=== PATIENT | male | born 2000 | race Caucasian/White ===

== ENCOUNTER 2019-09-13 21:28 | Emergency (ER) | payer OTHER ==
--- NOTE | 2019-09-13 22:12 | EDPHYS ---
Physician Documentation [facility] Name: José Luis Spain II Age: 19 yrs Sex: Male : 2000 Arrival Date: 09/13/2019 Time: 21:47 Bed 15 Private MD: ED Physician Higinio Jones HPI: 09/13 22:31 This 19 yrs old Male presents to ER via Ambulatory with complaints of Cyst. snw 22:31 The patient presents with pain that is acute, with no known mechanism of injury. The snw symptoms are located in the coccyx area. The pain does not radiate. The problem was sustained from unknown cause. Onset: The symptoms/episode began/occurred suddenly, 2 day(s) ago, and became persistent. Associated signs and symptoms: The patient has no apparent associated signs or symptoms, Pertinent negatives: fever. Severity of symptoms: At their worst the symptoms were moderate. The patient has not experienced similar symptoms in the past, but family has similar symptoms. The patient has not recently seen a physician. Historical: - Allergies: 21:49 No Known Allergies; lp1 - Home Meds: 21:49 None [Active]; lp1 - PMHx: 21:49 None; lp1 - PSHx: 21:49 Hand surgery; lp1 - Immunization history:: Adult Immunizations up to date. - Social history:: Smoking status: Patient uses tobacco products, smokes one-half pack cigarettes per day. - Ebola Screening: : No symptoms or risks identified at this time. ROS: 22:29 Constitutional: Negative for fever, chills, and weight loss, Eyes: Negative for injury, snw pain, redness, and discharge, ENT: Negative for injury, pain, and discharge, Neck: Negative for injury, pain, and swelling, Cardiovascular: Negative for chest pain, palpitations, and edema, Respiratory: Negative for shortness of breath, cough, wheezing, and pleuritic chest pain, Abdomen/GI: Negative for abdominal pain, nausea, vomiting, diarrhea, and constipation, Back: Negative for injury and pain, : Negative for injury, bleeding, discharge, and swelling, MS/Extremity: Negative for injury and deformity, Skin: Negative for injury, rash, and discoloration, except redness and tenderness to top of buttock cleft Neuro: Negative for headache, weakness, numbness, tingling, and seizure. Exam: 22:28 Constitutional: This is a well developed, well nourished patient who is awake, alert, snw and in no acute distress. Head/Face: Normocephalic, atraumatic. Eyes: Pupils equal round and reactive to light, extra-ocular motions intact. Lids and lashes normal. Conjunctiva and sclera are non-icteric and not injected. Cornea within normal limits. Periorbital areas with no swelling, redness, or edema. ENT: Nares patent. No nasal discharge, no septal abnormalities noted. Tympanic membranes are normal and external auditory canals are clear. Oropharynx with no redness, swelling, or masses, exudates, or evidence of obstruction, uvula midline. Mucous membranes moist. Neck: Trachea midline, no thyromegaly or masses palpated, and no cervical lymphadenopathy. Supple, full range of motion without nuchal rigidity, or vertebral point tenderness. No Meningismus. Chest/axilla: Normal chest wall appearance and motion. Nontender with no deformity. No lesions are appreciated. Cardiovascular: Regular rate and rhythm with a normal S1 and S2. No gallops, murmurs, or rubs. Normal PMI, no JVD. No pulse deficits. Respiratory: Lungs have equal breath sounds bilaterally, clear to auscultation and percussion. No rales, rhonchi or wheezes noted. No increased work of breathing, no retractions or nasal flaring. Abdomen/GI: Soft, non-tender, with normal bowel sounds. No distension or tympany. No guarding or rebound. No evidence of tenderness throughout. Skin: Warm, dry with normal turgor. Normal color with no rashes, no lesions, and no evidence of cellulitis. MS/ Extremity: Pulses equal, no cyanosis. Neurovascular intact. Full, normal range of motion. Neuro: Awake and alert, GCS 15, oriented to person, place, time, and situation. Cranial nerves II-XII grossly intact. Motor strength 5/5 in all extremities. Sensory grossly intact. Cerebellar exam normal. Normal gait. Psych: Awake, alert, with orientation to person, place and time. Behavior, mood, and affect are within normal limits. 22:28 Back: pain, that is moderate, ROM is normal, normal spinal alignment noted, CVA tenderness, is absent, muscle spasm, is not present, pilonidal area with erythema, no fluctuant area, tender to palpation. Vital Signs: 21:47 BP 120 / 78; Pulse 100; Resp 20; Temp 98.6(O); Pulse Ox 98% on R/A; Weight 136.08 kg; lp1 Height 6 ft. 3 in. (190.50 cm); Pain 4/10; 21:47 Body Mass Index 37.50 (136.08 kg, 190.50 cm) lp1 MDM: 22:10 Patient medically screened. snw 22:30 Data reviewed: vital signs, nurses notes. Data interpreted: Pulse oximetry: on room air snw is 98 %. Interpretation: normal. Counseling: I had a detailed discussion with the patient and/or guardian regarding: the historical points, exam findings, and any diagnostic results supporting the discharge/admit diagnosis, the need for outpatient follow up, to return to the emergency department if symptoms worsen or persist or if there are any questions or concerns that arise at home. Special discussion: Based on the history and exam findings, there is no indication for further emergent testing or inpatient evaluation. I discussed with the patient/guardian the need to see the primary care provider for further evaluation of the symptoms. Administered Medications: 22:31 Drug: Clindamycin 300 mg Route: PO; ea 22:38 Follow up: Response: Medication administered at discharge. ea 22:31 Drug: UltRAM 50 mg Route: PO; ea 22:38 Follow up: Response: No adverse reaction; Medication administered at discharge. ea Disposition: 09/14 00:46 Co-signature as Attending Physician, Higinio Jones MD. rn Disposition: 09/13/19 22:11 Discharged to Home. Impression: Pilonidal cyst without abscess. - Condition is Stable. - Discharge Instructions: Pilonidal Cyst, How to Take a Sitz Bath, Heat Therapy. - Prescriptions for Clindamycin HCl 300 mg Oral Capsule - take 1 capsule by ORAL route every 6 hours for 10 days; 40 capsule. - Work release form, Medication Reconciliation Form, Thank You Letter, Antibiotic Education, Prescription Opioid Use form. - Follow up: Private Physician; When: 2 - 3 days; Reason: Recheck today's complaints, Continuance of care, Re-evaluation by your physician. Follow up: Emergency Department; When: As needed; Reason: Worsening of condition. Signatures: Krystin Del Castillo, REGULATORY AFFAIRS COORDINATOR-C REGULATORY AFFAIRS COORDINATOR-Csnw Higinio Jones MD MD rn Pena, Laura RN RN lp1 Cely Wesley RN RN ea Corrections: (The following items were deleted from the chart) 09/13 22:38 22:11 09/13/2019 22:11 Discharged to Home. Impression: Pilonidal cyst without abscess. ea Condition is Stable. Forms are Medication Reconciliation Form, Thank You Letter, Antibiotic Education, Prescription Opioid Use. Follow up: Private Physician; When: 2 - 3 days; Reason: Recheck today's complaints, Continuance of care, Re-evaluation by your physician. Follow up: Emergency Department; When: As needed; Reason: Worsening of condition. snw
--- NOTE | 2019-09-13 22:12 | ER ---
Nurse's Notes [facility] Name: José Luis Spain II Age: 19 yrs Sex: Male : 2000 Arrival Date: 09/13/2019 Time: 21:47 Bed 15 Private MD: Diagnosis: Pilonidal cyst without abscess Presentation: 09/13 21:48 Presenting complaint: Patient states: Abscess to tail bone x 3 days, pain getting lp1 worse. Transition of care: patient was not received from another setting of care. Onset of symptoms was September 13, 2019. Risk Assessment: Do you want to hurt yourself or someone else? Patient reports no desire to harm self or others. Initial Sepsis Screen: Does the patient meet any 2 criteria? No. Patient's initial sepsis screen is negative. Does the patient have a suspected source of infection? No. Patient's initial sepsis screen is negative. Care prior to arrival: None. 21:48 Method Of Arrival: Ambulatory lp1 21:48 Acuity: YULISSA 4 lp1 Historical: - Allergies: 21:49 No Known Allergies; lp1 - Home Meds: 21:49 None [Active]; lp1 - PMHx: 21:49 None; lp1 - PSHx: 21:49 Hand surgery; lp1 - Immunization history:: Adult Immunizations up to date. - Social history:: Smoking status: Patient uses tobacco products, smokes one-half pack cigarettes per day. - Ebola Screening: : No symptoms or risks identified at this time. Screenin:15 Abuse screen: Denies threats or abuse. Nutritional screening: No deficits noted. ea Tuberculosis screening: No symptoms or risk factors identified. Fall Risk None identified. Assessment: 22:15 General: Appears uncomfortable, Behavior is calm, cooperative, appropriate for age. ea Neuro: Level of Consciousness is awake, alert, obeys commands, Oriented to person, place, time, situation. Cardiovascular: Patient's skin is warm and dry. Respiratory: Airway is patent Respiratory effort is even, unlabored, Respiratory pattern is regular, symmetrical. 22:38 Reassessment: Patient and/or family updated on plan of care and expected duration. Pain ea level reassessed. Patient is alert, oriented x 3, equal unlabored respirations, skin warm/dry/pink. Discharge instruction given to patient, verbalized the understanding of instruction. Pt left ED ambulatory accompanied by family. Vital Signs: 21:47 BP 120 / 78; Pulse 100; Resp 20; Temp 98.6(O); Pulse Ox 98% on R/A; Weight 136.08 kg; lp1 Height 6 ft. 3 in. (190.50 cm); Pain 4/10; 21:47 Body Mass Index 37.50 (136.08 kg, 190.50 cm) lp1 ED Course: 21:47 Patient arrived in ED. cl3 21:48 Triage completed. lp1 21:48 Arm band placed on left wrist. lp1 22:00 Krystin Del Castillo FNP-C is PHCP. snw 22:00 Higinio Jones MD is Attending Physician. snw 22:15 Patient has correct armband on for positive identification. Bed in low position. Call ea light in reach. 22:23 Cely Wesley, RN is Primary Nurse. ea 22:36 No provider procedures requiring assistance completed. Patient did not have IV access ea during this emergency room visit. Administered Medications: 22:31 Drug: Clindamycin 300 mg Route: PO; ea 22:38 Follow up: Response: Medication administered at discharge. ea 22:31 Drug: UltRAM 50 mg Route: PO; ea 22:38 Follow up: Response: No adverse reaction; Medication administered at discharge. ea Outcome: 22:11 Discharge ordered by . snw 22:37 Discharged to home ambulatory, with family. ea 22:37 Condition: stable 22:37 Discharge instructions given to patient, Instructed on discharge instructions, follow up and referral plans. medication usage, Demonstrated understanding of instructions, follow-up care, medications, Prescriptions given X 1. 22:38 Patient left the ED. ea Signatures: Krystin Del Castillo FNP-C [employer] GROUND OPERATIONS SUPERVISOR-Csnw Shyanne Wei RN RN lp1 Cely Wesley, Jermaine Milan RN, ea cl3
[2019-09-13] MEDS ORDERED: TRAMADOL HCL 50 MG TAB ONE (22:25)
[2019-09-13] MEDS ORDERED: CLINDAMYCIN HCL 150 MG CAP ONE (22:25)
[2019-09-14 01:38] VITALS: BP 120/78; TEMP 98.6; O2SAT 98
== END 2019-09-13 22:38 | disposition home or self-care (01) ==
LOC: ER 21:28
DX: L05.91 Pilonidal cyst without abscess (principal); F17.210 Nicotine dependence, cigarettes, uncomplicated
CPT/HCPCS: 99283

== ENCOUNTER 2019-09-19 20:59 | Emergency (ER) | payer OTHER ==
--- NOTE | 2019-09-19 21:43 | EDPHYS ---
Physician Documentation [facility] Name: José Luis Spain II Age: 19 yrs Sex: Male : 2000 Arrival Date: 09/19/2019 Time: 21:02 Bed 17 Private MD: ED Physician Justin Fitzpatrick HPI: 09/19 21:41 This 19 yrs old Male presents to ER via Ambulatory with complaints of Cyst. pm1 21:41 Pilonidal cyst. Description: draining. Onset: The symptoms/episode began/occurred 8 pm1 day(s) ago. Associated signs and symptoms: Pertinent negatives: fever. Modifying factors: the symptoms are alleviated by warm soaks, the symptoms are aggravated by sitting, touching. Severity of symptoms: in the emergency department the symptoms are actually worse, Patient reports that it started draining today. Has pain but did not get any pain medications 6 days ago. Would like prescription for pain medications and work note. The patient has been recently seen at the [facility] Emergency Department, last week, for similar complaints was given a prescription for antibiotics. Historical: - Allergies: 21:28 No Known Allergies; tl1 - PMHx: 21:28 None; tl1 - PSHx: 21:28 hand surgery; tl1 - Immunization history:: Adult Immunizations unknown. - Social history:: Smoking status: Patient uses tobacco products, smokes one-half pack cigarettes per day, Patient uses alcohol, occasionally. Patient/guardian denies using street drugs. - Ebola Screening: : Patient negative for fever greater than or equal to 101.5 degrees Fahrenheit, and additional compatible Ebola Virus Disease symptoms Patient denies exposure to infectious person Patient denies travel to an Ebola-affected area in the 21 days before illness onset. ROS: 21:41 Constitutional: Negative for fever, chills, and weight loss, Cardiovascular: Negative pm1 for chest pain, palpitations, and edema, Respiratory: Negative for shortness of breath, cough, wheezing, and pleuritic chest pain, Abdomen/GI: Negative for abdominal pain, nausea, vomiting, diarrhea, and constipation, Back: Negative for injury and pain. 21:41 Neuro: Negative for headache, weakness, numbness, tingling, and seizure. 21:41 Skin: Positive for of the coccyx, pilonidal cyst. Exam: 21:41 Constitutional: This is a well developed, well nourished patient who is awake, alert, pm1 and in no acute distress. Head/Face: Normocephalic, atraumatic. Chest/axilla: Normal chest wall appearance and motion. Nontender with no deformity. No lesions are appreciated. Cardiovascular: Regular rate and rhythm with a normal S1 and S2. No gallops, murmurs, or rubs. Normal PMI, no JVD. No pulse deficits. Respiratory: Lungs have equal breath sounds bilaterally, clear to auscultation and percussion. No rales, rhonchi or wheezes noted. No increased work of breathing, no retractions or nasal flaring. Back: No spinal tenderness. No costovertebral tenderness. Full range of motion. 21:41 MS/ Extremity: Pulses equal, no cyanosis. Neurovascular intact. Full, normal range of motion. 21:41 Skin: Appearance: normal except for affected area, pilonidal cyst with drainage. No surrounding cellulitis. 21:41 Neuro: Orientation: is normal, Motor: is normal, moves all fours. Vital Signs: 21:26 BP 136 / 98; Pulse 107; Resp 17; Temp 98.6; Pulse Ox 98% on R/A; Weight 136.08 kg; tl1 Height 6 ft. 4 in. (193.04 cm); Pain 8/10; 21:26 Body Mass Index 36.52 (136.08 kg, 193.04 cm) tl1 MDM: 21:35 Patient medically screened. pm1 21:41 Data reviewed: vital signs. Data interpreted: Pulse oximetry: on room air is 98 %. pm1 Interpretation: normal. Counseling: I had a detailed discussion with the patient and/or guardian regarding: the historical points, exam findings, and any diagnostic results supporting the discharge/admit diagnosis, the need for outpatient follow up, for definitive care, a general surgeon, to return to the emergency department if symptoms worsen or persist or if there are any questions or concerns that arise at home. Administered Medications: 21:51 Drug: Acosta 10 mg-325 mg 1 tabs Route: PO; 22:09 Follow up: Response: No adverse reaction; Pain is decreased; RASS: Alert and Calm (0) Disposition: 09/19/19 21:42 Discharged to Home. Impression: Pilonidal sinus without abscess. - Condition is Stable. - Discharge Instructions: Pilonidal Cyst. - Prescriptions for Tylenol- Codeine #3 300-30 mg Oral Tablet - take 2 tablets by ORAL route every 6 hours As needed; 20 tablet. - Work release form, Medication Reconciliation Form, Thank You Letter, Antibiotic Education, Prescription Opioid Use form. - Follow up: Emergency Department; When: As needed; Reason: Worsening of condition. Follow up: Kamaljit Torres MD; When: 2 - 3 days; Reason: Recheck today's complaints, Continuance of care, Re-evaluation by your physician. - Problem is new. - Symptoms have improved. - Notes: continue taking the antibiotics that you were prescribed Signatures: Mery Ferrara RN RN tl1 Remi Finney NP PACKAGE [employer]TER pm1 Chaparrita Villegas Corrections: (The following items were deleted from the chart) 22:09 21:42 09/19/2019 21:42 Discharged to Home. Impression: Pilonidal sinus without abscess. wh Condition is Stable. Forms are Medication Reconciliation Form, Thank You Letter, Antibiotic Education, Prescription Opioid Use. Follow up: Emergency Department; When: As needed; Reason: Worsening of condition. Follow up: Kamaljit Torres; When: 2 - 3 days; Reason: Recheck today's complaints, Continuance of care, Re-evaluation by your physician. Problem is new. Symptoms have improved. pm1
--- NOTE | 2019-09-19 21:43 | ER ---
Nurse's Notes [facility] Name: José Luis Spain II Age: 19 yrs Sex: Male : 2000 Arrival Date: 09/19/2019 Time: 21:02 Bed 17 Private MD: Diagnosis: Pilonidal sinus without abscess Presentation: 09/19 21:25 Presenting complaint: Patient states: I was seen here Thursday and diagnosed with tl1 pilonidal cyst and was prescribed antibiotics but nothing for pain. It started draining today but it is still uncomfortable. Transition of care: patient was not received from another setting of care. Onset of symptoms was September 09, 2019. Risk Assessment: Do you want to hurt yourself or someone else? Patient reports no desire to harm self or others. Initial Sepsis Screen: Does the patient meet any 2 criteria? No. Patient's initial sepsis screen is negative. Does the patient have a suspected source of infection? No. Patient's initial sepsis screen is negative. Care prior to arrival: Medication(s) given: antibiotics. 21:25 Method Of Arrival: Ambulatory tl1 21:25 Acuity: YULISSA 4 tl1 Historical: - Allergies: 21:28 No Known Allergies; tl1 - PMHx: 21:28 None; tl1 - PSHx: 21:28 hand surgery; tl1 - Immunization history:: Adult Immunizations unknown. - Social history:: Smoking status: Patient uses tobacco products, smokes one-half pack cigarettes per day, Patient uses alcohol, occasionally. Patient/guardian denies using street drugs. - Ebola Screening: : Patient negative for fever greater than or equal to 101.5 degrees Fahrenheit, and additional compatible Ebola Virus Disease symptoms Patient denies exposure to infectious person Patient denies travel to an Ebola-affected area in the 21 days before illness onset. Screenin:30 Abuse screen: Denies threats or abuse. Denies injuries from another. Nutritional wh screening: No deficits noted. Tuberculosis screening: No symptoms or risk factors identified. Fall Risk None identified. Assessment: 21:35 General: Appears in no apparent distress. Behavior is calm, cooperative, appropriate wh for age. Pain: Complains of pain in coccyx Pain does not radiate. Pain currently is 8 out of 10 on a pain scale. Quality of pain is described as aching, Pain began 2-3 days ago. Neuro: Level of Consciousness is awake, alert, obeys commands, Oriented to person, place, time, situation, Appropriate for age. Cardiovascular: Capillary refill < 3 seconds. Respiratory: Airway is patent Respiratory effort is even, unlabored, Respiratory pattern is regular, symmetrical. GI: Abdomen is flat, non-distended. : No signs and/or symptoms were reported regarding the genitourinary system. EENT: No signs and/or symptoms were reported regarding the EENT system. Derm: Pilonidal Cyst. Musculoskeletal: Circulation, motion, and sensation intact. Vital Signs: 21:26 BP 136 / 98; Pulse 107; Resp 17; Temp 98.6; Pulse Ox 98% on R/A; Weight 136.08 kg; tl1 Height 6 ft. 4 in. (193.04 cm); Pain 8/10; 21:26 Body Mass Index 36.52 (136.08 kg, 193.04 cm) tl1 ED Course: 21:02 Patient arrived in ED. ds1 21:26 Triage completed. tl1 21:28 Arm band placed on left wrist. tl1 21:30 Patient has correct armband on for positive identification. Bed in low position. Call wh light in reach. Side rails up X 1. Pulse ox on. NIBP on. 21:35 Remi Finney NP is PHCP. pm1 21:35 Justin Fitzpatrick MD is Attending Physician. pm1 21:42 Kamaljit Torres MD is Referral Physician. pm1 21:44 Chaparrita Villegas is Primary Nurse. 22:08 No provider procedures requiring assistance completed. Patient did not have IV access during this emergency room visit. Administered Medications: 21:51 Drug: Oceano 10 mg-325 mg 1 tabs Route: PO; 22:09 Follow up: Response: No adverse reaction; Pain is decreased; RASS: Alert and Calm (0) Outcome: 21:42 Discharge ordered by . pm1 22:08 Discharged to home ambulatory, with family. 22:08 Condition: stable 22:08 Discharge instructions given to patient, family, Instructed on discharge instructions, follow up and referral plans. no drinking with medication, no driving heavy equipment, medication usage, POC Pilonidal Cyst Demonstrated understanding of instructions, follow-up care, medications, POC Prescriptions given X 1. 22:09 Patient left the ED. Signatures: Ileana Gil ds1 Mery Ferrara, RN RN tl1 Remi Finney, GENERAL SURGERY PHYSICIAN ASSISTANT GENERAL SURGERY PHYSICIAN ASSISTANT pm1 Chaparrita Villegas
[2019-09-19] MEDS ORDERED: HYDROCODONE/APAP 10/325 TAB ONE (21:48)
[2019-09-19 22:15] VITALS: BP 136/98; TEMP 98.6; O2SAT 98
== END 2019-09-19 22:09 | disposition home or self-care (01) ==
LOC: ER 20:59
DX: L05.92 Pilonidal sinus without abscess (principal); F17.210 Nicotine dependence, cigarettes, uncomplicated
CPT/HCPCS: 99283

== ENCOUNTER 2020-03-21 09:23 | Emergency (ER) | payer OTHER, SELFPAY ==
--- OUTSIDE RECORDS SUMMARY | 2020-03-21 09:38 | XMS REPORT ---
:2000 Author Organization [facility] t Address [address] [place] [address] Care Team Providers Name Role Phone Unavailable Unavailable Unavailable Problems This patient has no known problems. Allergies, Adverse Reactions, Alerts This patient has no known allergies or adverse reactions. Medications This patient has no known medications. Procedures This patient has no known procedures. Results This patient has no known results.
--- NOTE | 2020-03-21 09:55 | EDPHYS ---
Physician Documentation [facility] Name: José Luis Spain II Age: 19 yrs Sex: Male : 2000 Arrival Date: 03/21/2020 Time: 09:26 Bed 12 Private MD: None, None ED Physician Justin Fitzpatrick HPI: 03/21 09:52 This 19 yrs old Male presents to ER via Ambulatory with complaints of Abscess.ma2 09:52 The patient presents with cellulitis of the mouth. Onset: The symptoms/episode ma2 began/occurred gradually, 2 day(s) ago. Associated signs and symptoms: Pertinent negatives: erythema, fever, nausea, shortness of breath. Severity of symptoms: At their worst the symptoms were moderate, in the emergency department the symptoms are unchanged. The patient has not experienced similar symptoms in the past. Historical: - Allergies: 09:38 No Known Allergies; hb - Home Meds: 09:38 None [Active]; hb - PMHx: 09:38 None; hb - PSHx: 09:38 Hand - Right; hb - Immunization history:: Adult Immunizations up to date. - Social history:: Smoking status: Patient reports the use of cigarette tobacco products, smokes one-half pack cigarettes per day, Patient/guardian denies using alcohol, street drugs, The patient lives with family. - Family history:: not pertinent. ROS: 09:52 Constitutional: Negative for fever, chills, and weight loss. ma2 09:52 All other systems are negative. Exam: 09:52 Constitutional: This is a well developed, well nourished patient who is awake, alert, ma2 and in no acute distress. Head/Face: Normocephalic, atraumatic. Eyes: Pupils equal round and reactive to light, extra-ocular motions intact. Lids and lashes normal. Conjunctiva and sclera are non-icteric and not injected. Cornea within normal limits. Periorbital areas with no swelling, redness, or edema. ENT: dental infection no abscess. Nares patent. No nasal discharge, no septal abnormalities noted. Tympanic membranes are normal and external auditory canals are clear. Oropharynx with no redness, swelling, or masses, exudates, or evidence of obstruction, uvula midline. Mucous membranes moist. Neck: Trachea midline, no thyromegaly or masses palpated, and no cervical lymphadenopathy. Supple, full range of motion without nuchal rigidity, or vertebral point tenderness. No Meningismus. Chest/axilla: Normal chest wall appearance and motion. Nontender with no deformity. No lesions are appreciated. Cardiovascular: Regular rate and rhythm with a normal S1 and S2. No gallops, murmurs, or rubs. Normal PMI, no JVD. No pulse deficits. Respiratory: Lungs have equal breath sounds bilaterally, clear to auscultation and percussion. No rales, rhonchi or wheezes noted. No increased work of breathing, no retractions or nasal flaring. Abdomen/GI: Soft, non-tender, with normal bowel sounds. No distension or tympany. No guarding or rebound. No evidence of tenderness throughout. MS/ Extremity: Pulses equal, no cyanosis. Neurovascular intact. Full, normal range of motion. Neuro: Awake and alert, GCS 15, oriented to person, place, time, and situation. Cranial nerves II-XII grossly intact. Motor strength 5/5 in all extremities. Sensory grossly intact. Cerebellar exam normal. Normal gait. Vital Signs: 09:37 BP 131 / 85; Pulse 85; Resp 16; Temp 97.4(TE); Pulse Ox 98% on R/A; Weight 136.08 kg; hb Height 6 ft. 3 in. (190.50 cm); Pain 8/10; 09:37 Body Mass Index 37.50 (136.08 kg, 190.50 cm) hb MDM: 09:38 Patient medically screened. ma2 09:52 Differential diagnosis: abscess. Data reviewed: vital signs, nurses notes. Counseling: ma2 I had a detailed discussion with the patient and/or guardian regarding: the historical points, exam findings, and any diagnostic results supporting the discharge/admit diagnosis, the presence of at least one elevated blood pressure reading (>120/80) during this emergency department visit, the need for outpatient follow up. Response to treatment: the patient's symptoms have mildly improved after treatment. Administered Medications: 10:17 Drug: TORadol 60 mg Route: IM; Site: right ventrogluteal; hb 10:40 Follow up: Response: No adverse reaction hb 10:17 Drug: Augmentin 875 mg Route: PO; hb 10:40 Follow up: Response: No adverse reaction hb Disposition: 05/13/20 09:54 Discharged to Home. Impression: Dental caries. - Condition is Stable. - Discharge Instructions: Dental Pain. - Prescriptions for Augmentin 875- 125 mg Oral Tablet - take 1 tablet by ORAL route every 12 hours for 10 days; 20 tablet. Diclofenac Sodium 75 mg Oral Tablet Sustained Release - take 1 tablet by ORAL route 2 times per day; 30 tablet. - Work release form, Medication Reconciliation Form, Thank You Letter, Antibiotic Education, Prescription Opioid Use form. - Follow up: Private Physician; When: Today; Reason: Continuance of care. Signatures: Amanda Fofana RN RN ss Gabriella Vargas RN RN Justin Fitzpatrick MD MD ma2 Corrections: (The following items were deleted from the chart) 10:40 09:54 03/21/2020 09:54 Discharged to Home. Impression: Dental caries. Condition is ss Stable. Forms are Medication Reconciliation Form, Thank You Letter, Antibiotic Education, Prescription Opioid Use. Follow up: Private Physician; When: Today; Reason: Continuance of care. ma2
--- NOTE | 2020-03-21 09:55 | ER ---
Nurse's Notes [facility] Name: José Luis Spain II Age: 19 yrs Sex: Male : 2000 Arrival Date: 03/21/2020 Time: 09:26 Bed 12 Private MD: None, None Diagnosis: Dental caries Presentation: 03/21 09:37 Chief complaint: Right sided lower molar pain x 2 days. Coronavirus screen: Proceed hb with normal triage. Ebola Screen: No symptoms or risks identified at this time. Initial Sepsis Screen: Does the patient meet any 2 criteria? No. Patient's initial sepsis screen is negative. Does the patient have a suspected source of infection? No. Patient's initial sepsis screen is negative. Risk Assessment: Do you want to hurt yourself or someone else? Patient reports no desire to harm self or others. Onset of symptoms was March 20, 2020. 09:37 Method Of Arrival: Ambulatory hb 09:37 Acuity: YULISSA 4 hb Triage Assessment: 09:38 General: Appears in no apparent distress. Behavior is calm, cooperative. Pain: Pain hb currently is 8 out of 10 on a pain scale. EENT: No signs and/or symptoms were reported regarding the EENT system. Neuro: Level of Consciousness is awake, alert, obeys commands, Oriented to person, place, time, situation. Cardiovascular: Capillary refill < 3 seconds Patient's skin is warm and dry. Respiratory: Airway is patent Respiratory effort is even, unlabored, Respiratory pattern is regular, symmetrical, Breath sounds are clear bilaterally. GI: No signs and/or symptoms were reported involving the gastrointestinal system. : No signs and/or symptoms were reported regarding the genitourinary system. Derm: Skin is pink, warm \T\ dry. Musculoskeletal: No signs and/or symptoms reported regarding the musculoskeletal system. Historical: - Allergies: 09:38 No Known Allergies; hb - Home Meds: 09:38 None [Active]; hb - PMHx: 09:38 None; hb - PSHx: 09:38 Hand - Right; hb - Immunization history:: Adult Immunizations up to date. - Social history:: Smoking status: Patient reports the use of cigarette tobacco products, smokes one-half pack cigarettes per day, Patient/guardian denies using alcohol, street drugs, The patient lives with family. - Family history:: not pertinent. Screenin:40 Abuse screen: Denies threats or abuse. Denies injuries from another. Nutritional hb screening: No deficits noted. Tuberculosis screening: No symptoms or risk factors identified. Fall Risk None identified. Assessment: 09:40 General: SEE TRIAGE ASSESSMENT. hb 10:18 Reassessment: Patient appears in no apparent distress at this time. Patient and/or hb family updated on plan of care and expected duration. Pain level reassessed. Patient is alert, oriented x 3, equal unlabored respirations, skin warm/dry/pink. Vital Signs: 09:37 BP 131 / 85; Pulse 85; Resp 16; Temp 97.4(TE); Pulse Ox 98% on R/A; Weight 136.08 kg; hb Height 6 ft. 3 in. (190.50 cm); Pain 8/10; 09:37 Body Mass Index 37.50 (136.08 kg, 190.50 cm) hb ED Course: 09:26 Patient arrived in ED. mr 09:26 None, None is Private Physician. mr 09:38 Triage completed. hb 09:38 Justin Fitzpatrick MD is Attending Physician. ma2 09:38 Arm band placed on. hb 09:40 Patient has correct armband on for positive identification. Bed in low position. Call light in reach. Side rails up X 1. 09:57 Gabriella Vargas RN is Primary Nurse. hb 10:27 No provider procedures requiring assistance completed. Patient did not have IV access ss during this emergency room visit. Administered Medications: 10:17 Drug: TORadol 60 mg Route: IM; Site: right ventrogluteal; hb 10:40 Follow up: Response: No adverse reaction hb 10:17 Drug: Augmentin 875 mg Route: PO; hb 10:40 Follow up: Response: No adverse reaction hb Outcome: 09:54 Discharge ordered by . ma2 10:39 Discharged to home ambulatory. ss 10:39 Condition: good 10:39 Discharge instructions given to patient, Instructed on discharge instructions, follow up and referral plans. medication usage, Demonstrated understanding of instructions, follow-up care, medications. 10:40 Patient left the ED. ss Signatures: Uzma Saez Amanda Michaud RN RN Gabriella Vargas RN RN Alzahri, Mohammad, MD MD ma2
[2020-03-21] MEDS ORDERED: KETOROLAC 30 MG/ML INJ ONE (10:07)
[2020-03-21] MEDS ORDERED: AMOX/K CLAV 875 MG TAB ONE (10:07)
[2020-03-21 10:48] VITALS: BP 131/85; TEMP 97.4; O2SAT 98
== END 2020-03-21 10:40 | disposition home or self-care (01) ==
LOC: ER 09:23
DX: K02.9 Dental caries, unspecified (principal); F17.210 Nicotine dependence, cigarettes, uncomplicated
CPT/HCPCS: 96372; 99283

== ENCOUNTER 2020-04-12 10:51 | Emergency (ER) | payer SELFPAY ==
--- NOTE | 2020-04-12 11:54 | ER ---
Nurse's Notes [facility] Name: José Luis Spain II Age: 19 yrs Sex: Male : 2000 Arrival Date: 04/12/2020 Time: 10:53 Bed Waiting Private MD: Diagnosis: Presentation: 04/12 11:05 Chief complaint: Patient states: tooth infection on right side of mouth, top and iw bottom, pain when teeth touch, has been going on for a few weeks, was seen here and given abx shot , has not seen a dentist. Coronavirus screen: Proceed with normal triage. Patient reports a cough. Patient denies shortness of breath or difficulty breathing. Patient denies measured and/or subjective temperature greater than 100.4F prior to today's visit. Patient denies travel on a cruise ship or to a country the [facility] currently lists as an affected area. Patient denies contact with known and/or suspected case of COVID-19. Ebola Screen: Patient negative for fever greater than or equal to 101.5 degrees Fahrenheit, and additional compatible Ebola Virus Disease symptoms Patient denies exposure to infectious person. Patient denies travel to an Ebola-affected area in the 21 days before illness onset. No symptoms or risks identified at this time. Initial Sepsis Screen: Does the patient meet any 2 criteria? No. Patient's initial sepsis screen is negative. Does the patient have a suspected source of infection? No. Patient's initial sepsis screen is negative. Risk Assessment: Do you want to hurt yourself or someone else? Patient reports no desire to harm self or others. Onset of symptoms. 11:05 Method Of Arrival: Ambulatory iw 11:05 Acuity: YULISSA 5 iw Historical: - Allergies: 11:08 No Known Allergies; iw - Home Meds: 11:08 None [Active]; iw - PMHx: 11:08 None; iw - PSHx: 11:08 Hand - Right; iw - Immunization history:: Adult Immunizations unknown. - Social history:: Smoking status: Patient reports the use of cigarette tobacco products, smokes one-half pack cigarettes per day. Assessment: 11:33 Reassessment: pt not in lobby when called. iw 11:52 Reassessment: registration reports pt told them he was already seen here before and he iw has medication already and he was leaving. Vital Signs: 11:05 BP 125 / 69; Pulse 96; Resp 16; Temp 98.3; Pulse Ox 100% on R/A; Weight 136.08 kg; iw Height 6 ft. 4 in. (193.04 cm); Pain 3/10; 11:05 Body Mass Index 36.52 (136.08 kg, 193.04 cm) iw ED Course: 10:53 Patient arrived in ED. ag5 11:07 Triage completed. iw 11:08 Arm band placed on. iw 11:33 Claudia Bowles, RN is Primary Nurse. iw Administered Medications: No medications were administered Outcome: 11:53 Patient left the ED. iw 11:53 Eloped from waiting room. iw Signatures: Claudia Bowles, RN RN iw Jigar Martinez ag5 Corrections: (The following items were deleted from the chart) 11:09 11:05 Pulse 96bpm; Resp 16bpm; Pulse Ox 100% RA; Temp 98.3F; 136.08 kg; Height 6 ft. 4 iw in.; BMI: 36.5; Pain 3/10; iw
[2020-04-12 11:58] VITALS: BP 125/69; TEMP 98.3; O2SAT 100
--- OUTSIDE RECORDS SUMMARY | 2020-04-12 12:11 | XMS REPORT | Continuity of Care Document ---
:2000 Author Organization [facility] t Address [facility] [place] [address] Care Team Providers Name Role Phone Unavailable Unavailable Unavailable Problems This patient has no known problems. Allergies, Adverse Reactions, Alerts This patient has no known allergies or adverse reactions. Medications This patient has no known medications. Procedures This patient has no known procedures. Results This patient has no known results.
== END 2020-04-12 11:53 | disposition left against medical advice (07) ==
LOC: ER 10:51
DX: K08.89 Other specified disorders of teeth and supporting structures (principal); F17.210 Nicotine dependence, cigarettes, uncomplicated; Z53.21 Procedure and treatment not carried out due to patient leaving prior to being seen by health care provider
CPT/HCPCS: 99281